=== PATIENT | male | born 1970 | race Caucasian/White ===

== ENCOUNTER 2022-11-25 07:05 | Day surgery (SDC) | payer OTHER ==
[2022-11-25] VITALS (253 sets, daily range): BP systolic 87–131; BP diastolic 41–86
[~2022-11-25] VITALS: Ht 180.3 cm; Wt 86.6 kg
[2022-11-25 08:09] LABS: EOS% 3.9 % (0-8); HEMATOCRIT 39.5 % (39.0-50.0); HEMOGLOBIN 13.4 g/dl (14.0-18.0); LYMPH% 36.1 % (15-41); MEAN CELL VOLUME 87.6 fL CALC (80.0-100.0); MEAN CORPUSCULAR HGB 29.7 pG CALC (26.0-32.0); MEAN CORPUSCULAR HGB CONC 33.9 g/dL CAL (32.0-36.0); MONO% 8.6 % (2-13); NEUT# 2.05 thou/uL (1.82-7.42); NEUT% 50.4 % (42-76); RED BLOOD COUNT 4.51 mill/uL (4.70-6.10); RED CELL DISTRI WIDTH 12.1 % (11.5-15.5)
[2022-11-25] MEDS ORDERED: KLONOPIN2 MG PO ×2 (08:22→15:12)
[2022-11-25] MEDS ORDERED: LYRICA75 MG PO (08:23)
[2022-11-25 09:01] LABS: ALBUMIN 4.2 g/dL (3.2-5.0); ALKALINE PHOSPHATASE 81 u/l (38-126); ANION GAP 12 (6-22 (CALC)); BILIRUBIN, TOTAL 0.7 mg/dL (0.2-1.3); BUN 14 mg/dL (9-20); BUN/CREATININE RATIO 15 (12-20 (CALC)); CARBON DIOXIDE 29 mmol/l (22-30); CHLORIDE 105 mmol/l (95-108); CREATININE 0.9 mg/dL (0.7-1.3); GFR FOR AFR.AMER. > 60 ML/MIN (>=60 (CALC)); GFR OTHER RACES > 60 ML/MIN (>=60 (CALC)); POTASSIUM 4.4 mmol/l (3.5-5.1); SGOT/AST 40 u/l (17-59); SODIUM 141 mmol/l (137-146); TOTAL PROTEIN 6.6 g/dL (6.3-8.2)
[2022-11-25] MEDS ORDERED: CLONIDINE0.1 MG PO (15:10)
[2022-11-25] MEDS ORDERED: NALTREXONE50 MG PO (15:10)
[2022-11-26 03:50] VITALS: BP 133/66
[2022-11-26 04:10] LABS: BASO% 0.1 % (0-3); HEMATOCRIT 36.6 % (39.0-50.0); HEMOGLOBIN 12.6 g/dl (14.0-18.0); IMMATURE GRANULOCYTES 0.2 % (0.0-5.0); LYMPH% 5.8 % (15-41); MEAN CELL VOLUME 87.1 fL CALC (80.0-100.0); MEAN CORPUSCULAR HGB CONC 34.4 g/dL CAL (32.0-36.0); MONO% 0.7 % (2-13); NEUT# 10.03 thou/uL (1.82-7.42); RED BLOOD COUNT 4.2 mill/uL (4.70-6.10); RED CELL DISTRI WIDTH 11.9 % (11.5-15.5)
[2022-11-26 04:11] VITALS: BP 133/66
[2022-11-26 05:02] LABS: NEUT% 93.2 % (42-76)
[2022-11-26 07:14] LABS: ALBUMIN 3.9 g/dL (3.2-5.0); ALKALINE PHOSPHATASE 65 u/l (38-126); ANION GAP 12 (6-22 (CALC)); BUN 14 mg/dL (9-20); BUN/CREATININE RATIO 15 (12-20 (CALC)); CARBON DIOXIDE 26 mmol/l (22-30); CHLORIDE 105 mmol/l (95-108); CREATININE 0.9 mg/dL (0.7-1.3); GFR FOR AFR.AMER. > 60 ML/MIN (>=60 (CALC)); GFR OTHER RACES > 60 ML/MIN (>=60 (CALC)); POTASSIUM 4.1 mmol/l (3.5-5.1); SGOT/AST 41 u/l (17-59); SODIUM 138 mmol/l (137-146); TOTAL PROTEIN 6.2 g/dL (6.3-8.2)
[2022-11-26 07:19] LABS: BILIRUBIN, TOTAL 1.1 mg/dL (0.2-1.3)
[2022-11-26 08:09] VITALS: BP 93/67
[2022-11-26 12:04] VITALS: BP 134/76
== END 2022-11-26 18:03 | disposition home or self-care (01) | DRG 897 ==
LOC: MS2 07:05 → ANR 07:05
PROVIDERS: ATTEND Anesthesiology Critical Care Medicine
DX: F11.20 Opioid dependence, uncomplicated (principal)
CPT/HCPCS: J0131; J2060; J2354; J3475